=== PATIENT | male | born 1960 | race Native Hawaiian/Other Pacific Islander ===

== ENCOUNTER 2023-01-31 19:34 | Emergency (ER) | payer OTHER ==
[~2023-01-31] VITALS: Ht 182.9 cm; Wt 59.0 kg
[2023-01-31 20:42] LABS: PLATELET COUNT 320 K/uL (142-355)
[2023-01-31 20:46] LABS: POTASSIUM 3.5 mmol/L (3.6-5.2)
[2023-02-01 00:10] VITALS: BP 110/64; TEMP 97.9
== END 2023-02-01 00:10 | disposition home or self-care (01) ==
LOC: ED 19:34
PROVIDERS: Family Medicine
DX: R10.9 Unspecified abdominal pain (principal); I10 Essential (primary) hypertension
CPT/HCPCS: 36415; 80053; 80061; 81002; 82150; 83690; 85027; 96374; 96375; 99284; J2270; J2405; Q9963